=== PATIENT | female | born 1980 | race Caucasian/White ===

== ENCOUNTER 2016-09-03 12:32 | Emergency (ER) | payer OTHER ==
[~2016-09-03 12:32] MED LIST: IBUPROFEN800 MG PO
[2016-09-03 14:16] LABS: HEMOGLOBIN 12.4 gm/dl (12.3-15.3); RED BLOOD COUNT 4.12 M/UL (4.00-5.10); WHITE BLOOD COUNT 7.3 K/UL (4.5-11.0)
[2016-09-03 14:35] LABS: BUN/CREATININE RATIO 28 (0-10)
== END 2016-09-03 15:30 | disposition home or self-care (01) ==
LOC: ER1 12:32
PROVIDERS: Emergency Medicine
DX: N39.0 Urinary tract infection, site not specified (principal); F17.200 Nicotine dependence, unspecified, uncomplicated; Z90.49 Acquired absence of other specified parts of digestive tract; Z88.1 Allergy status to other antibiotic agents
CPT/HCPCS: 36415; 80053; 81001; 82150; 83690; 84703; 85025; 87086; 96361; 96372; 96374; 96375; 99284; J0696; J2270; J2405; J7050

== ENCOUNTER 2016-09-09 12:06 | Emergency (ER) | payer OTHER ==
[2016-09-09 13:24] LABS: HEMOGLOBIN 13.5 gm/dl (12.3-15.3); RED BLOOD COUNT 4.54 M/UL (4.00-5.10); WHITE BLOOD COUNT 7.7 K/UL (4.5-11.0)
[2016-09-09 13:47] LABS: BUN/CREATININE RATIO 34 (0-10)
== END 2016-09-09 14:55 | disposition home or self-care (01) ==
LOC: ER1 12:06
PROVIDERS: Physician Assistant Medical
DX: R10.13 Epigastric pain (principal); R11.0 Nausea; F17.210 Nicotine dependence, cigarettes, uncomplicated; Z88.1 Allergy status to other antibiotic agents; Z90.49 Acquired absence of other specified parts of digestive tract
CPT/HCPCS: 36415; 80053; 81001; 82150; 83690; 85025; 96374; 96375; 99284; C9113; J2405; J7030

== ENCOUNTER → 2020-06-30 | Outpatient (CLI) | payer OTHER ==
[~2020-06-30] MED LIST changes: +ASPIRIN CHEWABL81 MG PO; +BENADRYL25 MG PO; +BENTYL 20MG TAB20 MG PO; +CARAFATE1 GM PO; +CEPHALEXIN500 MG PO; +DOXYCYCLINE HY100 M2 PO; +FLAGYL500 MG PO; +IBU600 MG PO; +IBUPROFEN600 MG PO; +MACROBID 100 M100 M1 PO; +OMNICEF 300 MG300 MG PO; +PANTOPRAZOLE SO40 MG PO; +PEPCID20 MG PO; +PHENERGAN 12.12.5 M1 PO; +PROTONIX 40 MG40 M1 PO; +PROTONIX40 MG PO; +TOPAMAX50 MG PO; +Voltaren Gel 1 % TOP; +ZOFRAN ODT 4 MG4 MG SL; +ZOFRAN4 MG PO
[2020-06-30 10:01] LABS: HEMOGLOBIN 12.5 gm/dl (12.3-15.3); RED BLOOD COUNT 4.28 M/UL (4.00-5.10); WHITE BLOOD COUNT 6.4 K/UL (4.5-11.0)
[2020-06-30 10:04] LABS: BUN/CREATININE RATIO 32 (0-10)
== END ==
LOC: CT 09:18
PROVIDERS: Internal Medicine Hematology & Oncology
DX: R91.1 Solitary pulmonary nodule (principal); R59.0 Localized enlarged lymph nodes
CPT/HCPCS: 36415; 71250; 80053; 85025; Q9967

== ENCOUNTER 2020-08-03 03:00 | Emergency (ER) | payer OTHER ==
[~2020-08-03 03:00] MED LIST changes: -BENADRYL25 MG PO; -CEPHALEXIN500 MG PO
[2020-08-03] MEDS ORDERED: IBUPROFEN800 MG PO (04:24)
== END 2020-08-03 04:30 | disposition home or self-care (01) ==
LOC: ER1 03:00
DX: S60.221A Contusion of right hand, initial encounter (principal); F17.200 Nicotine dependence, unspecified, uncomplicated; W23.0XXA Caught, crushed, jammed, or pinched between moving objects, initial encounter; Y92.69 Other specified industrial and construction area as the place of occurrence of the external cause; Y99.0 Civilian activity done for income or pay
CPT/HCPCS: 73130; 99283

== ENCOUNTER 2020-10-06 07:54 | Emergency (ER) | payer OTHER ==
[2020-10-06] MEDS ORDERED: CEPHALEXIN500 MG PO (08:18)
[2020-10-06] MEDS ORDERED: BENADRYL25 MG PO (08:18)
== END 2020-10-06 08:30 | disposition home or self-care (01) ==
LOC: ER1 07:54
DX: R21 Rash and other nonspecific skin eruption (principal)
CPT/HCPCS: 99282

== ENCOUNTER 2020-11-22 14:14 | Emergency (ER) | payer OTHER ==
[2020-11-22 12:12] LABS: HEMOGLOBIN 13.5 gm/dl (12.3-15.3); RED BLOOD COUNT 4.43 M/UL (4.00-5.10)
[2020-11-22 12:45] LABS: BUN/CREATININE RATIO 17 (0-10)
[~2020-11-22 14:14] MED LIST changes: +BENADRYL25 MG PO; +CEPHALEXIN500 MG PO
[2020-11-22] MEDS ORDERED: ZOFRAN ODT 4 MG4 MG SL (14:40)
== END 2020-11-22 14:50 | disposition home or self-care (01) ==
LOC: ER1 14:14
PROVIDERS: Physician Assistant
DX: R10.10 Upper abdominal pain, unspecified (principal); R11.2 Nausea with vomiting, unspecified; Z90.49 Acquired absence of other specified parts of digestive tract; Z90.710 Acquired absence of both cervix and uterus; Z90.89 Acquired absence of other organs; Z88.1 Allergy status to other antibiotic agents; Z79.899 Other long term (current) drug therapy; F17.200 Nicotine dependence, unspecified, uncomplicated
CPT/HCPCS: 80053; 81001; 82150; 83690; 85025; 87086; 96374; 96375; 99284; J1885; J2405; J7030; Q9967

== ENCOUNTER 2020-12-01 01:14 | Emergency (ER) | payer OTHER ==
[2020-12-01] MEDS ORDERED: IBUPROFEN600 MG PO (04:17)
== END 2020-12-01 04:26 | disposition home or self-care (01) ==
LOC: ER1 01:14
DX: S67.190A Crushing injury of right index finger, initial encounter (principal); S61.210A Laceration without foreign body of right index finger without damage to nail, initial encounter; F17.200 Nicotine dependence, unspecified, uncomplicated; Z88.1 Allergy status to other antibiotic agents; Y92.89 Other specified places as the place of occurrence of the external cause; Y99.0 Civilian activity done for income or pay; W23.0XXA Caught, crushed, jammed, or pinched between moving objects, initial encounter
CPT/HCPCS: 12001; 73130; 99283

== ENCOUNTER 2021-03-21 08:34 | Emergency (ER) | payer OTHER ==
[2021-03-21] MEDS ORDERED: VALACYCLOVIR1000 MG PO (09:17)
== END 2021-03-21 09:22 | disposition home or self-care (01) ==
LOC: ER1 08:34
DX: B02.9 Zoster without complications (principal); F17.200 Nicotine dependence, unspecified, uncomplicated; Z88.1 Allergy status to other antibiotic agents
CPT/HCPCS: 99282

== ENCOUNTER 2021-12-13 07:26 | Emergency (ER) | payer OTHER ==
[~2021-12-13 07:26] MED LIST changes: +VALACYCLOVIR1000 MG PO
[2021-12-13 08:40] LABS: HEMOGLOBIN 12.9 gm/dl (12.3-15.3); RED BLOOD COUNT 4.31 M/UL (4.00-5.10); WHITE BLOOD COUNT 5.5 K/UL (4.5-11.0)
[2021-12-13 08:56] LABS: BUN/CREATININE RATIO 19 (0-10)
[2021-12-13] MEDS ORDERED: ZOFRAN 4 MG TAB4 MG PO (09:25)
[2021-12-13] MEDS ORDERED: HYDROCODON-ACE1 EAC4 PO (09:25)
== END 2021-12-13 09:47 | disposition home or self-care (01) ==
LOC: ER1 07:26
PROVIDERS: Emergency Medicine
DX: R10.13 Epigastric pain (principal); R10.12 Left upper quadrant pain; R10.811 Right upper quadrant abdominal tenderness; R10.812 Left upper quadrant abdominal tenderness; R10.816 Epigastric abdominal tenderness
CPT/HCPCS: 80053; 83690; 84484; 85025; 96374; 96375; 99284; J1885; J2270; J2405

== ENCOUNTER → 2021-12-14 | Outpatient (CLI) | payer OTHER ==
[~2021-12-14] MED LIST changes: +HYDROCODON-ACE1 EAC4 PO; +ZOFRAN 4 MG TAB4 MG PO
[2021-12-15 07:12] LABS: HIV AB/P24 AG SCREEN Non Reactive (Non Reactive)
[2021-12-15 09:16] LABS: HBSAG SCREEN Negative (Negative); HEP B CORE AB, TOT Negative (Negative)
[2021-12-16 06:11] LABS: HCV ANTIBODY 0.1 (0.0-0.9)
== END ==
LOC: LAB 11:25
PROVIDERS: Nurse Practitioner Family
DX: Z11.4 Encounter for screening for human immunodeficiency virus [HIV] (principal); Z11.59 Encounter for screening for other viral diseases; R10.13 Epigastric pain
CPT/HCPCS: 82150; 86704; 86706; 86803; 87340; 87389

== ENCOUNTER → 2022-01-05 | Outpatient (CLI) | payer OTHER | LOC: EXRD 08:32 | DX: R10.11 Right upper quadrant pain (principal); K76.0 Fatty (change of) liver, not elsewhere classified | CPT/HCPCS: 76705 ==

== ENCOUNTER 2022-01-13 22:34 | Emergency (ER) | payer OTHER ==
[2022-01-14] MEDS ORDERED: HYDROCODON-ACE1 EAC4 PO (01:41)
== END 2022-01-14 01:55 | disposition home or self-care (01) ==
LOC: ER1 22:34
DX: S06.0X9A Concussion with loss of consciousness of unspecified duration, initial encounter (principal); M25.561 Pain in right knee; M54.2 Cervicalgia; R91.1 Solitary pulmonary nodule; F17.210 Nicotine dependence, cigarettes, uncomplicated; Z88.1 Allergy status to other antibiotic agents; W01.0XXA Fall on same level from slipping, tripping and stumbling without subsequent striking against object, initial encounter; Y92.009 Unspecified place in unspecified non-institutional (private) residence as the place of occurrence of the external cause
CPT/HCPCS: 70450; 71250; 72125; 73562; 99284

== ENCOUNTER 2022-01-19 14:49 | Emergency (ER) | payer OTHER ==
[2022-01-19 17:00] LABS: HEMOGLOBIN 13.3 gm/dl (12.3-15.3); RED BLOOD COUNT 4.39 M/UL (4.00-5.10); WHITE BLOOD COUNT 7.9 K/UL (4.5-11.0)
[2022-01-19 17:13] LABS: BUN/CREATININE RATIO 18 (0-10)
[2022-01-19] MEDS ORDERED: NAPROSYN500 MG PO (19:06)
[2022-01-19] MEDS ORDERED: CEFUROXIME500 MG PO (19:06)
[2022-01-19] MEDS ORDERED: ONDANSETRON ODT4 MG SL (19:06)
[2022-01-19] MEDS ORDERED: PYRIDIUM200 MG PO (19:06)
== END 2022-01-19 19:25 | disposition home or self-care (01) ==
LOC: ER1 14:49
PROVIDERS: Physician Assistant Medical
DX: R10.84 Generalized abdominal pain (principal); R11.2 Nausea with vomiting, unspecified; R10.814 Left lower quadrant abdominal tenderness; R10.813 Right lower quadrant abdominal tenderness; F17.210 Nicotine dependence, cigarettes, uncomplicated; R06.02 Shortness of breath; R51.9 Headache, unspecified; M25.472 Effusion, left ankle; W19.XXXA Unspecified fall, initial encounter
CPT/HCPCS: 80053; 81001; 83690; 85025; 96374; 96375; 99284; J1885; J2270; J2405; Q9967

== ENCOUNTER 2022-01-31 22:59 | Emergency (ER) | payer OTHER ==
[~2022-01-31 22:59] MED LIST changes: +CEFUROXIME500 MG PO; +NAPROSYN500 MG PO; +ONDANSETRON ODT4 MG SL; +PYRIDIUM200 MG PO
== END 2022-01-31 23:10 | disposition left against medical advice (07) ==
LOC: ER1 22:59
DX: R07.81 Pleurodynia (principal); F17.200 Nicotine dependence, unspecified, uncomplicated; Z88.1 Allergy status to other antibiotic agents; X50.9XXA Other and unspecified overexertion or strenuous movements or postures, initial encounter
CPT/HCPCS: 99283